=== PATIENT | female | born 1935 | race Two or more races ===

== ENCOUNTER 2017-06-30 04:10 | Emergency (ER) | payer OTHER ==
[~2017-06-30] VITALS: Ht 149.9 cm; Wt 79.4 kg
[2017-06-30] MEDS ORDERED: LOSARTAN POTAS100 MG (04:31)
[2017-06-30] MEDS ORDERED: SYNTHROID50 MCG (04:31)
== END 2017-06-30 07:22 | disposition home or self-care (01) ==
LOC: ER 04:10
DX: S01.82XA Laceration with foreign body of other part of head, initial encounter (principal); W18.09XA Striking against other object with subsequent fall, initial encounter; Y93.89 Activity, other specified; Y92.091 Bathroom in other non-institutional residence as the place of occurrence of the external cause; Y99.8 Other external cause status

== ENCOUNTER 2021-09-08 11:03 | Outpatient (CLI) | payer OTHER ==
[~2021-09-08 11:03] MED LIST: LOSARTAN POTAS100 MG; SYNTHROID50 MCG
== END 2021-09-08 13:39 | disposition home or self-care (01) ==
LOC: NUCLEAR 11:03
DX: I73.9 Peripheral vascular disease, unspecified (principal); I87.2 Venous insufficiency (chronic) (peripheral)

== ENCOUNTER 2021-09-12 11:05 | Outpatient (CLI) | payer OTHER | END 2021-09-12 11:06 | disposition home or self-care (01) | LOC: NUCLEAR 11:05 | PROVIDERS: ATTEND Internal Medicine | DX: I73.9 Peripheral vascular disease, unspecified (principal) ==

== ENCOUNTER 2022-05-08 10:00 | Inpatient (IN) | payer OTHER ==
[~2022-05-08] VITALS: Ht 149.9 cm; Wt 57.2 kg
== END 2022-05-10 16:02 | disposition home or self-care (01) | DRG 812 ==
LOC: ER 10:00 → MEDI 16:55 → MEDJ 16:55 → MEDI 21:32
PROVIDERS: ADMIT Internal Medicine; ATTEND Internal Medicine
PROC: 30233N1 Transfusion of Nonautologous Red Blood Cells into Peripheral Vein, Percutaneous Approach (ICD-10-PCS; principal; 2022-05-09)
DX: D64.89 Other specified anemias (principal); K59.09 Other constipation; I10 Essential (primary) hypertension; E03.8 Other specified hypothyroidism; Z20.822 Contact with and (suspected) exposure to COVID-19

== ENCOUNTER 2022-07-12 13:19 | Inpatient (IN) | payer OTHER ==
[~2022-07-12] VITALS: Ht 142.2 cm; Wt 55.8 kg
--- NOTE | 2022-07-12 14:03 | NUR ---
SE LLAMA A PACIENTE Y NO CONTESTA
--- NOTE | 2022-07-12 14:06 | NUR ---
PACIENTE ALERTA Y ORIENTADA X3, EN COMPANIA DE HIJ[place] QUIEN REFIERE QUE VIENEN POR PARTE DE LA MARILEE. SISI REID DEBIDO A RESULTADOS DE HEMOGLOBINA BAJA (8.5). SE MONITOREAN VS Y SE UBICA DR. VAN NICHOLAS (INTERNISTA)
--- NOTE | 2022-07-12 17:42 | NUR ---
SE EDUCA A PTE SOBRE TX MEDICO ESTA REFIERE ENTENDER. SE RUI MUESTRAS DE LABORATORIO UTILIZANDO MEDIDAS ASEPTICAS. SE COLOCA H/L A PTE Y COLOCA IV FLUIDS. SE RUI TUBOS PILOTOS A PTE Y NOTIFICA A PERSONAL DE SERVICIOS [place] SOBRE TUBOS PILOTOS DONDE SE REQUIZAN 2 UNIDADES DE PRBC FRACC. EN HOLD. SE LLEVAN TUBOS PILOTOS A LABORATORIO. PTE EN ESPERA DE CONSULTA CON MEDICINA INTERNA.
== END 2022-07-14 20:49 | disposition home or self-care (01) | DRG 812 ==
LOC: ER 13:19 → MEDI 17:58 → MEDJ 07-13 18:30
PROVIDERS: ADMIT Internal Medicine; ATTEND Internal Medicine
PROC: BW21ZZZ Computerized Tomography (CT Scan) of Abdomen and Pelvis (ICD-10-PCS; principal; 2022-07-12)
PROC: 30233N1 Transfusion of Nonautologous Red Blood Cells into Peripheral Vein, Percutaneous Approach (ICD-10-PCS; 2022-07-13)
DX: D64.89 Other specified anemias (principal); I10 Essential (primary) hypertension; K59.09 Other constipation; E03.9 Hypothyroidism, unspecified; Z20.822 Contact with and (suspected) exposure to COVID-19

== ENCOUNTER 2022-08-09 16:06 | Inpatient (IN) | payer OTHER ==
[~2022-08-09] VITALS: Ht 121.9 cm; Wt 54.4 kg
[2022-08-09] MEDS ORDERED: FENTANYL1 EAC3 TD (16:13)
[2022-08-09] MEDS ORDERED: ONDANSETRON ODT4 MG PO (16:14)
[2022-08-09] MEDS ORDERED: ZOFRAN8 MG (16:14)
--- NOTE | 2022-08-09 16:14 | NUR ---
SE RECIBE PTE EN AMBULANCIA ACOMPANADA DE ESMER FAMILIARES. ALERTA Y ORIENTADA X3. YANES FAMILIAR REFIERE QUE VIENE POR DOLOR ABDOMINAL Y DIFICULTAD RESPIRATORIA. REFERIDA POR DR. VAN QUILES
--- NOTE | 2022-08-09 16:43 | NUR ---
PTE ALERTA,ESTABLE Y ACOMPANADA DEL FAMILIAR CUAL SE EDUCA SOBRE EL TRATAMIENTO QUE RECIBIRA EN EL HOSPITAL Y MIGUEL REFIERE ENTENDER
== END 2022-08-28 22:59 | disposition expired | DRG 840 ==
LOC: ER 16:06 → MEDI 19:38
PROVIDERS: ADMIT Internal Medicine; ATTEND Internal Medicine
PROC: 3E0F7SF Introduction of Other Gas into Respiratory Tract, Via Natural or Artificial Opening (ICD-10-PCS; 2022-08-09)
PROC: 4A12X4Z Monitoring of Cardiac Electrical Activity, External Approach (ICD-10-PCS; principal; 2022-08-11)
PROC: 02HV33Z Insertion of Infusion Device into Superior Vena Cava, Percutaneous Approach (ICD-10-PCS; 2022-08-11)
PROC: 8E0ZXY6 Isolation (ICD-10-PCS; 2022-08-11)
PROC: BW24ZZZ Computerized Tomography (CT Scan) of Chest and Abdomen (ICD-10-PCS; 2022-08-11)
PROC: B020ZZZ Computerized Tomography (CT Scan) of Brain (ICD-10-PCS; 2022-08-12)
PROC: BW24ZZZ Computerized Tomography (CT Scan) of Chest and Abdomen (ICD-10-PCS; 2022-08-20)
PROC: BW2110Z Computerized Tomography (CT Scan) of Abdomen and Pelvis using Low Osmolar Contrast, Unenhanced and Enhanced (ICD-10-PCS; 2022-08-20)
PROC: 30243N1 Transfusion of Nonautologous Red Blood Cells into Central Vein, Percutaneous Approach (ICD-10-PCS; 2022-08-27)
PROC: 5A09457 Assistance with Respiratory Ventilation, 24-96 Consecutive Hours, Continuous Positive Airway Pressure (ICD-10-PCS; 2022-08-27)
DX: C85.90 Non-Hodgkin lymphoma, unspecified, unspecified site (principal); J96.01 Acute respiratory failure with hypoxia; R65.11 Systemic inflammatory response syndrome (SIRS) of non-infectious origin with acute organ dysfunction; D84.81 Immunodeficiency due to conditions classified elsewhere; N17.9 Acute kidney failure, unspecified; J90 Pleural effusion, not elsewhere classified; J98.11 Atelectasis; E87.21 Acute metabolic acidosis; E86.0 Dehydration; R11.2 Nausea with vomiting, unspecified; G89.3 Neoplasm related pain (acute) (chronic); R59.1 Generalized enlarged lymph nodes; R13.19 Other dysphagia; Z53.29 Procedure and treatment not carried out because of patient's decision for other reasons; Z66 Do not resuscitate; E87.5 Hyperkalemia; E83.52 Hypercalcemia; I10 Essential (primary) hypertension; E86.9 Volume depletion, unspecified; D63.0 Anemia in neoplastic disease; D64.89 Other specified anemias